=== PATIENT | male | born 2005 | race Caucasian/White ===

== ENCOUNTER 2025-02-21 16:39 | Emergency (ER) | payer SELFPAY ==
[2025-02-21 16:53] VITALS: BMI 22.4
[2025-02-21 18:11] VITALS: BP 108/62
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
[2025-02-21 18:32] VITALS: BP 119/90
== END 2025-02-21 18:38 | disposition home or self-care (01) ==
LOC: EMR 16:39
PROVIDERS: EMERGENCY PHYSICIAN Emergency Medicine; FAMILY PHYSICIAN Pediatrics
DX: S80.12XA Contusion of left lower leg, initial encounter (principal); S80.812A Abrasion, left lower leg, initial encounter; V23.49XA Other motorcycle driver injured in collision with car, pick-up truck or van in traffic accident, initial encounter; Y92.410 Unspecified street and highway as the place of occurrence of the external cause
CPT/HCPCS: 99283; 71046; 72170; 73552; 73590